=== PATIENT | male | born 1985 | race Two or more races ===

== ENCOUNTER 2022-02-25 22:40 | Emergency (ER) | payer MEDICAID ==
[~2022-02-25] VITALS: Ht 180.3 cm; Wt 156.3 kg
[2022-02-25 23:14] VITALS: BP 126/90
[2022-02-25] MEDS ORDERED: ASPirin 81 mg TAB PO ONE (23:45)
[2022-02-25] MEDS ORDERED: LORazepam 0.5 MG TAB PO ONE (23:45)
[2022-02-26 00:27] LABS: Albumin 3.7 g/dL (3.4-5.0); BUN/Creatinine Ratio 17.6; Calcium 8.6 mg/dL (8.5-10.1); INR 0.93 (0.9-1.15); Magnesium 2.2 mg/dL (1.6-2.6); Partial Thromboplastin Time 28.1 sec (24.6-33.4); Potassium 3.8 mmol/L (3.5-5.1)
[2022-02-26 00:30] LABS: Bilirubin, Total 0.3 mg/dL (0.2-1.0); Total Protein 7.2 g/dL (6.4-8.2)
[2022-02-26 00:34] LABS: Basophils # (auto) 0.1 10 ^3/uL (0-0.2); Basophils % (auto) 0.5 % (0.0-2.0); Eosinophils # (auto) 0.2 10 ^3/uL (0-0.8); Eosinophils % (auto) 1.6 % (0.0-7.0); Hematocrit 45.1 % (41.0-53.0); Hemoglobin 15.4 g/dL (13.5-17.5); Lymphocytes # (auto) 4.6 10 ^3/uL (0.4-5.4); Lymphocytes % (auto) 36.9 % (10.0-50.0); Mean Corpuscular Hgb Conc. 34.2 g/dL (32.0-36.0); Mean Corpuscular Volume 90.9 fL (80.0-100.0); Monocytes # (auto) 1.1 10 ^3/uL (0-1.3); Neutrophils # (auto) 6.5 10 ^3/uL (1.6-8.6); Nucleated Red Blood Cells % 0.1 %; Red Blood Cells 4.97 10^6/uL (4.5-5.90); Red Cell Distribution Width 13.2 % (11.8-14.3); White Blood Cell 12.4 10^3/uL (4.4-10.8)
[2022-02-26] MEDS ORDERED: LORA0.5T20 PO (01:05)
== END 2022-02-26 02:16 | disposition home or self-care (01) ==
LOC: ER 22:47
DX: F41.9 Anxiety disorder, unspecified (principal); R06.6 Hiccough; Z88.6 Allergy status to analgesic agent
CPT/HCPCS: 36415; 70450; 71045; 80053; 83735; 83880; 84484; 85025; 85379; 85610; 85730; 93005